=== PATIENT | male | born 1955 | race African-American/Black ===

== ENCOUNTER 2016-11-04 11:53 | Day surgery (SDC) | payer MEDICARE, OTHER ==
--- NOTE | ~2016-11-04 | EGD ---
EGD REPORT [facility] [address] [place]. [address] NAME: STEVE BURGESS : 57 STATUS : REG [facility] [place] PAT#: [id number] AGE: 61 ADM/REG DATE : 11/04/16 MR#: [id number] REPORT SERV DATE: 11/04/16 DICTATED BY: RITU MCKEON DATE: 11/04/16 REPORT STATUS : Draft [facility]ED [facility] DATE: 11/04/16 Endoscopy Center Patient Name: Steve Burgess Date of : 1955 Attending MD: CHARLA MCKEON MD Procedure Date No Time: 11/04/2016 Procedure: Colonoscopy Indications: Heme positive stool, Iron deficiency anemia Referring MD: DANIELLA CURRY Medicines: See the Anesthesia note for documentation of the administered medications Complications: No immediate complications. Estimated blood loss: None. Procedure: Pre-Anesthesia Assessment: - ASA Grade Assessment: III - A patient with severe systemic disease. - Prior to the procedure, a History and Physical was performed, and patient medications and allergies were reviewed. The patient's tolerance of previous anesthesia was also reviewed. The risks and benefits of the procedure and the sedation options and risks were discussed with the patient. All questions were answered, and informed consent was obtained. Prior Anticoagulants: The patient has taken no previous anticoagulant or antiplatelet agents. After reviewing the risks and benefits, the patient was deemed in satisfactory condition to undergo the procedure. After I obtained informed consent, the scope was passed under direct vision. Throughout the procedure, the patient's blood pressure, pulse, and oxygen saturations were monitored continuously. The PCF [id number] was introduced through the anus and advanced to the terminal ileum. The ileocecal valve, appendiceal orifice, terminal ileum and rectum were photographed. The entire colon was examined. The colonoscopy was performed without difficulty. The patient tolerated the procedure well. The quality of the bowel preparation was adequate. Findings: The perianal and digital rectal examinations were normal. The terminal ileum appeared normal. A sessile polyp was found at the hepatic flexure. The polyp was 5 mm in size. The polyp was removed with a cold snare. Resection and retrieval were complete. Two sessile polyps were found in the sigmoid colon. The polyps were small in size. These polyps were removed with a cold snare. Resection EGD REPORT [place] [id number] [facility] [place]. [address] NAME: STEVE BURGESS : [birth year] STATUS : REG [facility]#: [id number] AGE: 61 ADM/REG DATE : 11/04/16 MR#: [id number] REPORT SERV DATE: 11/04/16 DICTATED BY: RITU MCKEON DATE: 11/04/16 REPORT STATUS : Draft TRANSCRIBED BY: [employer] DATE: 11/04/16 and retrieval were complete. Non-bleeding internal hemorrhoids were found during retroflexion and were Grade I (internal hemorrhoids that do not prolapse). No other significant abnormalities were identified in a careful examination of the remainder of the colon. Impression: - The examined portion of the ileum was normal. - One 5 mm polyp at the hepatic flexure. Resected and retrieved. - Two small polyps in the sigmoid colon. Resected and retrieved. - Non-bleeding internal hemorrhoids. Recommendation: - Patient has a contact number available for emergencies. The signs and symptoms of potential delayed complications were discussed with the patient. Return to normal activities tomorrow. Written discharge instructions were provided to the patient. - Regular diet. - Patient has a contact number available for emergencies. The signs and symptoms of potential delayed complications were discussed with the patient. Return to normal activities tomorrow. Written discharge instructions were provided to the patient. - Regular diet. - Discharge patient to home. - Continue present medications. - Await pathology results. - Repeat colonoscopy in 5 years for surveillance. Procedure Code(s): --- Professional --- 01016, Colonoscopy, flexible, proximal to splenic flexure; with removal of tumor(s), polyp(s), or other lesion(s) by snare technique Diagnosis Code(s): --- Professional --- K64.0, First degree hemorrhoids D12.5, Benign neoplasm of sigmoid colon D12.3, Benign neoplasm of transverse colon R19.5, Other fecal abnormalities D50.9, Iron deficiency anemia, unspecified CPT copyright 2013 [employer]. All rights reserved. The codes documented in this report are preliminary and upon vacuum pan operator review may be revised to meet current compliance requirements. EGD REPORT [place] [address] [address] [place]. [address] NAME: STEVE BURGESS : [birth year] STATUS : REG [facility] [place] PAT#: [id number] AGE: 61 ADM/REG DATE : 11/04/16 MR#: [id number] REPORT SERV DATE: 11/04/16 DICTATED BY: RITU MCKEON DATE: 11/04/16 REPORT STATUS : Draft TRANSCRIBED BY: [employer] DATE: 11/04/16 CHARLA MCKEON MD 11/04/2016 3:01 PM This report has been signed electronically. Number of Addenda: 0 Note Initiated On: 11/04/2016 2:21 PM [facility] [place] [address]
--- NOTE | ~2016-11-04 | EGD ---
EGD REPORT [facility] [address] [place]. [address] NAME: STEVE BURGESS : 57 STATUS : [place] [facility] [place] PAT#: [id number] AGE: 61 ADM/REG DATE : 11/04/16 MR#: [id number] REPORT SERV DATE: 11/04/16 DICTATED BY: RITU MCKEON DATE: 11/04/16 REPORT STATUS : Draft [facility]ANSCRIBED BY: [facility] DATE: 11/04/16 Endoscopy Center Patient Name: Steve Burgess Date of : 1955 Attending MD: CHARLA MCKEON MD Procedure Date No Time: 11/04/2016 Procedure: Upper GI endoscopy Indications: Iron deficiency anemia, Heme positive stool Referring MD: DANIELLA CURRY Medicines: See the Anesthesia note for documentation of the administered medications Complications: No immediate complications. Estimated blood loss: Minimal. Procedure: Pre-Anesthesia Assessment: - ASA Grade Assessment: III - A patient with severe systemic disease. - Prior to the procedure, a History and Physical was performed, and patient medications and allergies were reviewed. The patient's tolerance of previous anesthesia was also reviewed. The risks and benefits of the procedure and the sedation options and risks were discussed with the patient. All questions were answered, and informed consent was obtained. Prior Anticoagulants: The patient has taken no previous anticoagulant or antiplatelet agents. After reviewing the risks and benefits, the patient was deemed in satisfactory condition to undergo the procedure. After obtaining informed consent, the endoscope was passed under direct vision. Throughout the procedure, the patient's blood pressure, pulse, and oxygen saturations were monitored continuously. The GIF H190 [id number] was introduced through the mouth, and advanced to the second part of duodenum. The upper GI endoscopy was accomplished without difficulty. The patient tolerated the procedure well. Findings: A single 7 mm sessile polyp with was found in the second part of the duodenum. The polyp was removed with a cold snare. Resection and retrieval were complete. The entire examined stomach was normal. Biopsy with a cold forceps was performed for histology. The cardia and gastric fundus were normal on retroflexion. The examined esophagus was normal. EGD REPORT [address] [address] NAME: STEVE BURGESS : [birth year] STATUS : [place] [facility] [place] PAT#: [id number] AGE: 61 ADM/REG DATE : 11/04/16 MR#: [id number] REPORT SERV DATE: 11/04/16 DICTATED BY: RITU MCKEON DATE: 11/04/16 REPORT STATUS : Draft TRANSCRIBED BY: [employer] DATE: 11/04/16 Impression: - A single duodenal polyp. Resected and retrieved. - Normal stomach. Biopsied. - Normal esophagus. Recommendation: - Patient has a contact number available for emergencies. The signs and symptoms of potential delayed complications were discussed with the patient. Return to normal activities tomorrow. Written discharge instructions were provided to the patient. - Regular diet. - Discharge patient to home. - Continue present medications. - Await pathology results. Procedure Code(s): --- Professional --- 37695, Esophagogastroduodenoscopy, flexible, transoral; with removal of tumor(s), polyp(s), or other lesion(s) by snare technique Diagnosis Code(s): --- Professional --- K31.7, Polyp of stomach and duodenum D50.9, Iron deficiency anemia, unspecified R19.5, Other fecal abnormalities CPT copyright 2013 [employer]. All rights reserved. The codes documented in this report are preliminary and upon mailroom manager review may be revised to meet current compliance requirements. CHARLA MCKEON MD 11/04/2016 2:41 PM This report has been signed electronically. Number of Addenda: 0 Note Initiated On: 11/04/2016 2:25 PM Scope Withdrawal Time 0 hours 0 minutes 0 seconds [address] [place] [address]
[~2016-11-04 11:53] MED LIST: ADALAT CC90 MG PO; APRES25 PO; APRES50 PO; ASA5GR PO; C1 PO; FOSRENOL1000 MG PO; HYDRALAZINE100 MG PO; JANTOVEN5 MG PO; LOP100 PO; LOP25 PO; METOPROLOL PO; NEPHRO PO; NORCO1 TA1 PO; NORV10 PO; NXL9 PO; PHOSLO PO; PRIN10 PO; PROZAC PO; RENA-VITE PO; RENAL SFTGLS1 MG PO; SENSIPAR60 MG PO; UNKNOWN BP MED PO; XANAX1 MG PO; ZEMPLAR1 PO
[2016-11-04 13:11] LABS: BUN (BLOOD UREA NITROGEN) 30 MG/DL (6-23); CALCIUM, SERUM 10.4 MG/DL (8.5-10.4); CHLORIDE, SERUM 105 MMOL/L (96-112); CO2 (CARBON DIOXIDE) 31 MMOL/L (24-34); CREATININE 9.11 MG/DL (0.70-1.30); GFR AFRICAN AMERICAN 7 ML/MIN (>=60); GFR NON AFRICAN AMERICAN 6 ML/MIN (>=60); GLUCOSE, SERUM 83 MG/DL (60-99); POTASSIUM, SERUM 4.4 MMOL/L (3.5-5.3); SODIUM, SERUM 145 MMOL/L (135-148)
== END 2016-11-04 23:59 | disposition home or self-care (01) ==
LOC: DMU 11:53
PROVIDERS: Internal Medicine Gastroenterology
PROC: 0DB98ZX Excision of Duodenum, Via Natural or Artificial Opening Endoscopic, Diagnostic (ICD-10-PCS; 2016-11-04)
PROC: 0DBK8ZZ Excision of Ascending Colon, Via Natural or Artificial Opening Endoscopic (ICD-10-PCS; principal; 2016-11-04 14:31)
PROC: 0DBN8ZZ Excision of Sigmoid Colon, Via Natural or Artificial Opening Endoscopic (ICD-10-PCS; 2016-11-04 14:31)
PROC: 0DB68ZX Excision of Stomach, Via Natural or Artificial Opening Endoscopic, Diagnostic (ICD-10-PCS; 2016-11-04 14:31)
DX: D12.5 Benign neoplasm of sigmoid colon (principal); K63.5 Polyp of colon; K64.0 First degree hemorrhoids; D50.9 Iron deficiency anemia, unspecified; D12.2 Benign neoplasm of ascending colon; D18.1 Lymphangioma, any site; I49.9 Cardiac arrhythmia, unspecified; I12.0 Hypertensive chronic kidney disease with stage 5 chronic kidney disease or end stage renal disease; N18.6 End stage renal disease; K31.7 Polyp of stomach and duodenum; Z79.899 Other long term (current) drug therapy
CPT/HCPCS: 80048; 88305; J0360